=== PATIENT | male | born 1940 | race Caucasian/White ===

== ENCOUNTER → 2017-02-06 | Outpatient (REF) | payer MEDICARE ==
[~2017-02-06] MED LIST: LOSA100T36 PO; METO-207 PO; OMEP20CA3 PO; SIMV20TA2 PO; XARE20TA PO
[2017-02-06 12:48] LABS: URIC ACID 6.3 MG/DL (3.5-7.2)
== END ==
LOC: M LABDRAW1 12:11
PROVIDERS: ATTEND Physician Assistant
DX: M17.12 Unilateral primary osteoarthritis, left knee (principal)

== ENCOUNTER 2017-05-11 07:07 | Day surgery (SDC) | payer MEDICARE ==
[~2017-05-11] VITALS: Ht 177.8 cm; Wt 86.2 kg
[~2017-05-11 07:07] MED LIST changes: +LATA5OPD OS; -METO-207 PO; +METO-346 PO; +METO1TAB7 PO; +PROAAER10 INH
[2017-05-11] MEDS ORDERED: LR 1,000 ML IV ONE ×2 (07:15→08:00)
[2017-05-11] MEDS ORDERED: fentaNYL 100 MCG/2 ML INJECTION (J3010) As Ordered ONE (08:10)
[2017-05-11] MEDS ORDERED: MIDAZOLAM INJ 2 MG/2 ML VIAL (J2250) As Ordered ONE (08:10)
[2017-05-11] MEDS ORDERED: PROPOFOL 200 MG/20 ML VIAL As Ordered ONE (08:10)
[2017-05-11] MEDS ORDERED: LIDOCAINE 2% INJ 100 MG/5 ML SDV (FOR ANES.) As Ordered ONE (08:10)
[2017-05-11] MEDS ORDERED: dexameTHASONE 4 MG/ML 1ML VIAL (J1100) As Ordered ONE (08:13)
[2017-05-11] MEDS ORDERED: ONDANSETRON 4MG/2ML VIAL (J2405) As Ordered ONE (08:13)
[2017-05-11] MEDS ORDERED: METOPROLOL TART 25 MG TABLET PO ONE (08:15)
[2017-05-11 08:20] VITALS: BP 163/83
[2017-05-11] MEDS ORDERED: ROPIvacaine 0.5% 30 ML INJECTION (J2795) As Ordered ONE (09:22)
--- NOTE | 2017-05-11 09:37 | IPN ---
DATE: 05/11/2017 Patient seen and examined. He wished to go ahead with a left knee arthroscopy. He understands the nature of this. The risks of bleeding, infection, damage to nerves, vessels, persistent pain, blood clots, among others. He understands that this is not likely to help him with his arthritic related pain. He does not wish to proceed with a knee replacement.
[2017-05-11] MEDS ORDERED: TRIAMCINOLONE ACETONIDE SUSP 40 MG/ML VIAL (J3301) As Ordered ONE (09:56)
[2017-05-11] MEDS ORDERED: METOPROLOL 5 MG/5 ML VIAL As Ordered ONE (09:57)
[2017-05-11] MEDS ORDERED: PERCOCET 5MG/325MG TAB PO PRN (10:45)
[2017-05-11] MEDS ORDERED: fentaNYL 100 MCG/2 ML INJECTION (J3010) IV PRN (10:45)
[2017-05-11] MEDS ORDERED: NORCO, ANEXSIA 5/325MG TABLET (HYDROcodone/ACETAMINOPHEN) PO PRN ×2 (10:45)
[2017-05-11] MEDS ORDERED: ONDANSETRON 4MG/2ML VIAL (J2405) IV PRN (10:45)
[2017-05-11] MEDS ORDERED: LR 1,000 ML IV SCH ×2 (10:45)
--- NOTE | 2017-05-11 10:47 | RO ---
DATE OF PROCEDURE: 05/11/2017 PREOPERATIVE DIAGNOSIS: Left knee osteoarthritis, medial meniscus tear. POSTOPERATIVE DIAGNOSIS: Left knee osteoarthritis, medial meniscus tear, with lateral meniscus tear. PROCEDURE: Left knee operative arthroscopy, partial medial and lateral meniscectomy, joint debridement. SURGEON: Dr. Zaire Kwok OUTSIDE RIGGER: Spencer Becker ANESTHESIA: General. ESTIMATED BLOOD LOSS: Minimal. COMPLICATIONS: None. INDICATION: 77-year-old gentleman who has had some persistent medial sided knee pain. MRI scan was consistent with fairly significant medial compartment arthritis as well as a medial meniscus tear. He wished to go ahead with surgical treatment having failed conservative management. He understood the nature of this and the risks of bleeding, infection, damage to nerves, vessels, persistent pain, blood clots, medical problems, among others. He understood the prognosis was more limited for arthroscopy in the case of arthritis, but he felt like he was having some mechanical symptoms and wished to go ahead with the debridement and meniscectomy. PROCEDURE: The patient was taken to the operating room and placed in supine position after general anesthesia was induced. The left lower extremity was prepped and draped in the usual sterile fashion. A time-out was performed. Tourniquet was inflated. I then created inferomedial and inferolateral portals per routine, identified the patellofemoral joint, which was arthritic, grade 3 to 4 changes in some areas. I proceeded down both gutters and identified the medial compartment. The medial meniscus had a complex medial meniscus tear with a large flap that I debrided using a combination of basket punch and a 4.2 shaver back to a stable rim. I reprobed the meniscus. There was grade 4 changes on the medial compartment involving both medial and lateral meniscus. I proceeded to the notch. The anterior cruciate ligament (ACL) was unremarkable. The lateral compartment was identified. There was a central lateral meniscus tear that was debrided with the shaver. There was also some lateral compartment arthritis that was debrided. Back to the patellofemoral joint and smoothed off any loose flaps. I irrigated copiously, removed instrumentation, and closed the portals using #4-0 nylon suture. Injected 30 mL of Naropin with 2 mL of fentanyl and 1/2 mL of Kenalog 40. Sterile dressing was applied. Tourniquet was deflated. He was taken to recovery room in stable condition. There were no known complications. The plan will be routine postop.
[2017-05-11 12:15] VITALS: BP 155/79
== END 2017-05-11 12:42 | disposition home or self-care (01) ==
LOC: M SDC 07:07
PROVIDERS: ATTEND Orthopaedic Surgery
DX: M23.204 Derangement of unspecified medial meniscus due to old tear or injury, left knee (principal); M23.201 Derangement of unspecified lateral meniscus due to old tear or injury, left knee; M17.12 Unilateral primary osteoarthritis, left knee; I48.91 Unspecified atrial fibrillation; I10 Essential (primary) hypertension; E78.00 Pure hypercholesterolemia, unspecified; K21.9 Gastro-esophageal reflux disease without esophagitis; Z79.899 Other long term (current) drug therapy; Z87.891 Personal history of nicotine dependence
CPT/HCPCS: 29880; J0690; J1100; J2250; J2405; J2795; J3010; J3301

== ENCOUNTER → 2021-06-21 | Outpatient (REF) | payer MEDICARE ==
[~2021-06-21] MED LIST changes: +LATA0.0013 OS; -LATA5OPD OS; -LOSA100T36 PO; +LOSA100T50 PO; +OMEP1CAP73 PO; -OMEP20CA3 PO; -SIMV20TA2 PO; +SIMV20TA22 PO
== END ==
LOC: M LAB REF 17:23
PROVIDERS: ATTEND Dermatology
DX: C44.519 Basal cell carcinoma of skin of other part of trunk (principal); D23.5 Other benign neoplasm of skin of trunk
CPT/HCPCS: 11102; 11603; 12032; 88305; G0463

== ENCOUNTER → 2021-09-09 | Outpatient (REF) | payer MEDICARE ==
[~2021-09-09] MED LIST changes: +LOSA100T45 PO; -LOSA100T50 PO
== END ==
LOC: M LAB REF 17:12
PROVIDERS: ATTEND Nurse Practitioner Family
DX: C44.519 Basal cell carcinoma of skin of other part of trunk (principal); L82.1 Other seborrheic keratosis